=== PATIENT | female | born 1995 | race Two or more races ===

== ENCOUNTER 2025-01-02 00:35 | Emergency (ER) | payer OTHER ==
[~2025-01-02] VITALS: Ht 154.9 cm; Wt 49.0 kg
[2025-01-02] MEDS ORDERED: ZYRTEC10 M3 (00:54)
[2025-01-02] MEDS ORDERED: BUDESONIDE 0.5 MG/2 ML AMPUL.NEB IH STA (01:18)
[2025-01-02] MEDS ORDERED: GUAIFENESIN 200 MG/10 ML BLIST.PACK PO STA (01:20)
[2025-01-02] MEDS ORDERED: METHYLPREDNISOLONE SOD SUCC 125 MG VIAL IV STA (01:20)
[2025-01-02] MEDS ORDERED: ALBUTEROL SULFATE 3 ML/2.5 MG AMPUL.NEB IH SCH ×2 (01:30→05:15)
[2025-01-02 02:11] LABS: BASO % 0.1 % (0.1-1.2); EOS # 0.01 (0.04-0.54); EOS % 0.0 % (0.7-7.0); LYMPH # 0.75 (1.18-3.74); LYMPH % 3.7 % (19.3-53.1); MEAN PLATELET VOLUME 11.00 fl (9.4-12.4); MONO # 1.58 (0.24-0.82); MONO % 7.7 % (4.7-12.5); NEUT # 17.95 (1.56-6.13); NEUT % 88.2 % (34.0-71.1); RED CELL DISTRIBUTION WIDTH 13.2 % (11.6-14.4)
[2025-01-02 02:28] LABS: COVID-19 AG NEGATIVE (NEGATIVE)
[2025-01-02 02:35] LABS: URINE APPEARANCE Clear; URINE BILIRRUBIN Negative (NEGATIVE); URINE BLOOD Large; URINE COLOR Yellow; URINE KETONE Negative (NEGATIVE); URINE LEUKOCYTE Moderate; URINE NITRATE Negative; URINE PROTEIN Negative (NEGATIVE); URINE UROBILINOGEN 0.2 E.U./dl
[2025-01-02 02:39] LABS: URINE BACTERIA 349.1 uL (0.0-1933); URINE EPITHELIAL CELLS 47.6 uL (0.0-38.8); URINE RBC 51.3 uL (0.0-20.8); URINE WBC 60.0 uL (0.0-23.2)
[2025-01-02 02:57] LABS: URINE CAST 0.14 uL (0.0-1.40); URINE GLUCOSE 100 MG/DL (NEGATIVE)
[2025-01-02 02:58] LABS: TYPE CELLS SQUAMOUS
[2025-01-02] MEDS ORDERED: HYDROCODONE/CHLORPHEN P-STIREX 5 ML ML PO ONE (03:45)
[2025-01-02] MEDS ORDERED: ZYNCOF 20-400120 ML PO (06:32)
[2025-01-02] MEDS ORDERED: BUDESONIDE0.5 MG/2 M IH (06:32)
[2025-01-02] MEDS ORDERED: VENTOLIN HFA18 GM IH (06:32)
[2025-01-02] MEDS ORDERED: ALBUTEROL2.5 MG/3 M IH (06:32)
[2025-01-02] MEDS ORDERED: ZITHROMAX500 MG PO (06:33)
== END 2025-01-02 06:46 ==
LOC: ER 00:35
PROVIDERS: General Practice
DX: J45.909 Unspecified asthma, uncomplicated (principal); J45.901 Unspecified asthma with (acute) exacerbation; Z20.822 Contact with and (suspected) exposure to COVID-19; Z88.8 Allergy status to other drugs, medicaments and biological substances
CPT/HCPCS: 36415; 71046; 96365; 99283; J3490